=== PATIENT | female | born 1950 | race Caucasian/White ===

== ENCOUNTER 2017-03-15 20:34 | Emergency (ER) | payer OTHER ==
[2017-03-15 20:41] VITALS: TEMP 97.7; O2SAT 94
[2017-03-15] MEDS ORDERED: LORazepam 1 MG TAB PO ONE (21:56)
--- NOTE | 2017-03-15 22:00 | EDPHY ---
H & P Time Seen by Provider: 03/15/17 21:43 HPI/ROS: CHIEF COMPLAINT: Dry mouth and feeling jittery HISTORY OF PRESENT ILLNESS: 66-year-old woman had a marijuana edible tonight at 6:15 p.m.. She presents because about an hour ago she started getting a dry mouth despite drinking a lot of water and feeling jittery like her arms wanted to jump up and out of her body. She felt like her heart was racing fast but no chest pain shortness of breath or syncope. She does have a history of tachycardia. REVIEW OF SYSTEMS: Eye: no change in vision ENT: no sore throat Cardiac: No chest pain, no syncope Pulmonary: no cough or SOB Abdomen: no vomiting, diarrhea, abdominal pain Musculoskeletal: no back pain Skin: no rash Neuro: no headache Constitutional: no fever : no urinary symptoms A comprehensive 10 point review of systems is otherwise negative aside from elements mentioned in the history of present illness. PAST MEDICAL HISTORY: Hypothyroid and hypertension, sleep apnea Social history: Marijuana Advil as above, here with a friend General Appearance: Alert and conversant, cooperative. Eyes: No scleral icterus. ENT, Mouth: Dry mucous membranes Respiratory: Normal respiratory effort, breath sounds equal, lungs are clear to auscultation. Cardiovascular: Regular rate and rhythm. No murmur not tachycardic Gastrointestinal: Abdomen is soft and non tender. Neurological: Alert and oriented x3. Normally conversant. Face symmetric, normal movement and sensation in all extremities. Not actively tremulous Skin: Warm and dry, no rashes. Musculoskeletal: No peripheral edema and no joint swelling. Psychiatric: Not agitated. Emergency Department course/MDM: Smoking Status: Former smoker Constitutional: Initial Vital Signs Temperature (C) 36.5 C 03/15/17 20:38 Heart Rate 129 H 03/15/17 20:38 Respiratory Rate 20 03/15/17 20:38 Blood Pressure 106/101 H 03/15/17 20:38 O2 Sat (%) 94 03/15/17 20:38 O2 Delivery Mode Room Air Allergies/Adverse Reactions: Cephalosporins Allergy (Verified 11/08/13 13:15) Rash ciprofloxacin [From Cipro] Allergy (Verified 11/08/13 13:15) HEART PALPITATIONS ciprofloxacin HCl [From Cipro] Allergy (Verified 11/08/13 13:15) HEART PALPITATIONS Penicillins Allergy (Verified 11/08/13 13:15) FACIAL SWELLILNG Home Medications: Medication Instructions Recorded Amlodipine Besylate 11/08/13 Levothyroxine 11/08/13 Metoprolol Tartrate 11/08/13 Zoloft 25mg (*) 03/15/17 Medical Decision Making - Diagnostics EKG Interpretation: 12-lead EKG interpreted by me; official reading is in trace master. My interpretation is sinus rhythm with first-degree AV block and left axis, rate 71. - Data Points Medications Given: Discontinued Medications Lorazepam (Ativan) 0.5 mg PO EDNOW ONE Stop: 03/15/17 21:57 Last Admin: 03/15/17 22:05 Dose: 0.5 mg Departure - Departure Disposition: Home, Routine, Self-Care Clinical Impression: Adverse reaction to cannabis Qualifiers: Encounter type: initial encounter Qualified Code(s): T40.7X5A - Adverse effect of cannabis (derivatives), initial encounter Condition: Good Instructions: Lorazepam (By mouth) Referrals: Gwendolyn Waterman MD [Primary Care Provider] - As per Instructions
--- NOTE | 2017-03-15 22:04 | CPEKG ---
Heart Rate: 71 RR Interval: 845 P-R Interval: 224 QRSD Interval: 96 QT Interval: 400 QTC Interval: 435 P [place]: 45 QRS [place]: -33 T Wave [place]: 33 EKG Severity - ABNORMAL ECG - EKG Impression: SINUS RHYTHM EKG Impression: FIRST DEGREE AV BLOCK EKG Impression: PROBABLE LEFT ATRIAL ABNORMALITY EKG Impression: LEFT AXIS DEVIATION Electronically Signed By: Cedrick Grimaldo 15-Mar-2017 22:09:25
[2017-03-15 22:26] VITALS: BP 156/76; PULSE 74; RESP 16
== END 2017-03-15 22:33 | disposition home or self-care (01) ==
DX: R68.2 Dry mouth, unspecified (principal); T40.7X5A Adverse effect of cannabis (derivatives), initial encounter; I10 Essential (primary) hypertension

== ENCOUNTER → 2017-09-09 | Outpatient (CLI) | payer OTHER | LOC: FIMAGING 11:40 | PROVIDERS: ATTEND Internal Medicine | DX: Z12.31 Encounter for screening mammogram for malignant neoplasm of breast (principal) | CPT/HCPCS: G0202 ==

== ENCOUNTER → 2017-09-17 | Outpatient (CLI) | payer OTHER | LOC: FIMAGING 11:35 | PROVIDERS: ATTEND Surgery | DX: I83.813 Varicose veins of bilateral lower extremities with pain (principal) ==

== ENCOUNTER → 2017-11-05 | Outpatient (CLI) | payer OTHER | LOC: BHFA 14:00 | PROVIDERS: ATTEND Internal Medicine Cardiovascular Disease | DX: R00.2 Palpitations (principal); R00.0 Tachycardia, unspecified; I10 Essential (primary) hypertension; E78.5 Hyperlipidemia, unspecified ==

== ENCOUNTER → 2017-11-06 | Outpatient (CLI) | payer OTHER | LOC: BHFA 13:00 | PROVIDERS: ATTEND Internal Medicine Cardiovascular Disease | DX: I77.9 Disorder of arteries and arterioles, unspecified (principal); R00.0 Tachycardia, unspecified; R00.2 Palpitations | CPT/HCPCS: 78452; 93017; A9500; J2785 ==

== ENCOUNTER → 2017-12-02 | Outpatient (CLI) | payer OTHER | LOC: BMCIMAGING 11:24 | PROVIDERS: ATTEND Internal Medicine | DX: Z13.820 Encounter for screening for osteoporosis (principal); M85.89 Other specified disorders of bone density and structure, multiple sites ==

== ENCOUNTER → 2018-09-10 | Outpatient (CLI) | payer OTHER | LOC: FIMAGING 14:02 | PROVIDERS: ATTEND Internal Medicine | DX: Z12.31 Encounter for screening mammogram for malignant neoplasm of breast (principal) ==